=== PATIENT | male | born 1990 | race Two or more races ===

== ENCOUNTER 2018-11-19 20:39 | Emergency (ER) | payer OTHER ==
[~2018-11-19] VITALS: Ht 149.9 cm; Wt 75.3 kg
--- NOTE | 2018-11-19 21:15 | NUR ---
Dr. Cook at bedside for MSE.
[2018-11-19] MEDS ORDERED: IV NORMAL SALINE 1000 ML BAG IV ONE (21:30)
[2018-11-19] MEDS ORDERED: KETOROLAC TROMETHAMINE 15 MG INJ IV ONE (21:30)
[2018-11-19] MEDS ORDERED: NORMAL SALINE FLUSH 10 ML DISP.SYRIN ONE (21:36)
[2018-11-19] MEDS ORDERED: IOHEXOL 300MG/ML 100 ML INFUS..BTL ONE (21:36)
[2018-11-19] MEDS ORDERED: IV NORMAL SALINE 250 ML IV ONE (21:36)
[2018-11-19] MEDS ORDERED: SWABABLE VALVE TRANSFER SET EA MC ONE (21:36)
[2018-11-19 21:54] LABS: BASOPHILS # (AUTO) 0.1 K/uL (0.0-8.0); BASOPHILS % (AUTO) 0.5 % (0.0-2.0); EOSINOPHILS # (AUTO) 0.5 K/uL (0.0-0.7); EOSINOPHILS % (AUTO) 4.7 % (0.0-7.0); HEMATOCRIT 41.9 % (36.7-47.1); HEMOGLOBIN 14.2 g/dL (12.5-16.3); LYMPHOCYTES # (AUTO) 3.7 K/uL (20.0-40.0); LYMPHOCYTES % (AUTO) 34.2 % (20.5-51.5); MEAN CORPUSCULAR HEMOGLOBIN 28.3 uug (23.8-33.4); MEAN CORPUSCULAR HGB CONC 34 g/dL (32.5-36.3); MEAN CORPUSCULAR VOLUME 83.2 fL (73.0-96.2); MONOCYTES % (AUTO) 9.6 % (0.0-11.0); NEUTROPHILS # (AUTO) 5.6 K/uL (1.8-8.9); PLATELET COUNT (AUTO) 222 K/uL (152-348); RED BLOOD CELL COUNT(AUTO) 5.03 MIL/uL (4.06-5.63); WHITE BLOOD COUNT (AUTO) 10.9 K/uL (3.6-10.2)
[2018-11-19] MEDS ORDERED: KETOROLAC TROMETHAMINE 15 MG INJ ONE (21:55)
[2018-11-19 21:56] LABS: CARBON DIOXIDE 26 mmol/L (21-32); CHLORIDE 101 mmol/L (98-107); CREATININE 0.7 mg/dL (0.6-1.3); GLUCOSE 101 mg/dL (74-106); POTASSIUM 3.9 mmol/L (3.5-5.1); UREA NITROGEN, BLOOD 13 mg/dL (7-18)
[2018-11-19 22:02] LABS: ALANINE AMINOTRANSFERASE 68 U/L (16-63); ALKALINE PHOSPHATASE 106 U/L (50-136); ASPARTATE AMINOTRANSFERASE 30 U/L (15-37); BILIRUBIN,DIRECT 0.1 mg/dL (0.0-0.2); BILIRUBIN,TOTAL 0.4 mg/dL (0.2-1.0); LIPASE 143 U/L (73-393); TOTAL PROTEIN, SERUM 7.7 g/dL (6.4-8.2)
--- NOTE | 2018-11-19 22:10 | NUR ---
Pt out of ER for CT.
--- NOTE | 2018-11-19 22:24 | NUR ---
Pt back to ER from CT.
--- NOTE | 2018-11-19 22:35 | NUR ---
Pt provided urine sample, sent to lab.
[2018-11-19 22:42] LABS: *BILIRUBIN,URIN NEGATIVE (NEGATIVE); *BLOOD, URINE NEGATIVE (NEGATIVE); *CLARITY,URINE CLEAR (CLEAR); *COLOR,URINE LIGHT YELLOW (YELLOW); *KETONES,URINE NEGATIVE (NEGATIVE); *UROBILINOGEN,URINE 0.2 E.U./dl (NORMAL); LEUKOCYTE ESTERASE ,URINE NEGATIVE (NEGATIVE); NITRITE, URINE NEGATIVE (NEGATIVE); PH,URINE 5.5 (5.0-8.0); UGLUCOSE NEGATIVE (NEGATIVE)
[2018-11-19 22:53] LABS: BACTERIA,URINE NONE SEEN /HPF (NONE SEEN); RBC,URINE NONE SEEN /HPF (0-3); SQUAMOUS EPITHELIAL CELL,UR FEW /HPF (NONE SEEN); WBC,URINE 0-3 /HPF (0-3)
--- NOTE | 2018-11-19 23:06 | NUR ---
Patient discharged to home in stable conditon. Written and verbal after care instructions given. Patient verbalizes understanding of instructions. Pt ambulated out of ER with steady gait, no acute signs of distress, VSS, all belongings taken, IV site discontinued.
[2018-11-19 23:07] VITALS: BP 115/74
== END 2018-11-19 23:08 | disposition home or self-care (01) ==
LOC: ER 20:41
DX: K55.069 Acute infarction of intestine, part and extent unspecified (principal)
CPT/HCPCS: 36415; 71045; 74177; 80048; 80076; 81001; 83690; 84484; 85025; 85730; 93005; 96374; 99284; J1885; Q9967; 70030-TC; A4663; J3490; J7030; J7050

== ENCOUNTER 2019-10-04 18:41 | Emergency (ER) | payer OTHER ==
[~2019-10-04] VITALS: Ht 165.1 cm; Wt 77.1 kg
[2019-10-04] MEDS ORDERED: OSELTAMIVIR PHOSPHATE 75 MG CAPSULE ONE (22:45)
[2019-10-04] MEDS ORDERED: OSELTAMIVIR PHOSPHATE 75 MG CAPSULE PO ONE (22:45)
--- NOTE | 2019-10-04 22:50 | NUR ---
PT ABLE TO TOLERATE PO MEDS ORDERED Patient discharged to home in stable conditon. Written and verbal after care instructions given. Patient verbalizes understanding of instructions. AMBULATORY W/ STABLE ALL BELONGINGS W/ PT
[2019-10-04 22:53] VITALS: BP 119/89
== END 2019-10-04 22:54 | disposition home or self-care (01) ==
LOC: ER 18:43
DX: J10.1 Influenza due to other identified influenza virus with other respiratory manifestations (principal)
CPT/HCPCS: 36415; 86403; 87070; 87400; A4663

== ENCOUNTER 2020-07-28 11:11 | Emergency (ER) | payer OTHER ==
[~2020-07-28] VITALS: Ht 165.1 cm; Wt 77.1 kg
[2020-07-28] MEDS ORDERED: KETOROLAC TROMETHAMINE 15 MG INJ IVP ONE (11:30)
[2020-07-28] MEDS ORDERED: KETOROLAC TROMETHAMINE 30 MG INJ ONE (11:34)
--- NOTE | 2020-07-28 11:50 | NUR ---
PT IS IN ROOM #1B. DR MARTIN EVALUATED THE PT.
[2020-07-28 12:01] LABS: BASOPHILS % (AUTO) 0.7 % (0.0-2.0); EOSINOPHILS # (AUTO) 0.2 K/uL (0.0-0.7); HEMOGLOBIN 15.5 g/dL (12.5-16.3); LYMPHOCYTES # (AUTO) 2.4 K/uL (20.0-40.0); LYMPHOCYTES % (AUTO) 37.5 % (20.5-51.5); MEAN CORPUSCULAR HEMOGLOBIN 28.5 uug (23.8-33.4); MEAN CORPUSCULAR HGB CONC 34 g/dL (32.5-36.3); MEAN CORPUSCULAR VOLUME 84.8 fL (73.0-96.2); MONOCYTES # (AUTO) 0.9 K/uL (2.0-10.0); MONOCYTES % (AUTO) 13.4 % (0.0-11.0); NEUTROPHILS # (AUTO) 2.9 K/uL (1.8-8.9); NEUTROPHILS % (AUTO) 45.4 % (38.5-71.5); PLATELET COUNT (AUTO) 177 K/uL (152-348); RED BLOOD CELL COUNT(AUTO) 5.43 MIL/uL (4.06-5.63); WHITE BLOOD COUNT (AUTO) 6.4 K/uL (3.6-10.2)
[2020-07-28 12:05] LABS: BILIRUBIN,DIRECT 0.1 mg/dL (0.0-0.2); BILIRUBIN,TOTAL 0.2 mg/dL (0.2-1.0); CREATININE 0.9 mg/dL (0.6-1.3); POTASSIUM 3.7 mmol/L (3.5-5.1); TOTAL PROTEIN, SERUM 8.7 g/dL (6.4-8.2)
[2020-07-28 12:07] LABS: *BILIRUBIN,URIN NEGATIVE (NEGATIVE); *BLOOD, URINE NEGATIVE (NEGATIVE); *CLARITY,URINE CLEAR (CLEAR); *COLOR,URINE YELLOW (YELLOW); *KETONES,URINE NEGATIVE (NEGATIVE); *UROBILINOGEN,URINE 0.2 E.U./dl (NORMAL); LEUKOCYTE ESTERASE ,URINE NEGATIVE (NEGATIVE); NITRITE, URINE NEGATIVE (NEGATIVE); PH,URINE 6.5 (5.0-8.0); UGLUCOSE NEGATIVE (NEGATIVE)
--- NOTE | 2020-07-28 12:48 | NUR ---
PT WAS D/C'd TO HOME. D/C INSTRUCTIONS GIVEN TO THE PT BY DR MARTIN.
[2020-07-28 12:49] VITALS: BP 129/81
[2020-07-28 17:22] LABS: BACTERIA,URINE FEW /HPF (NONE SEEN); RBC,URINE 0-3 /HPF (0-3); SQUAMOUS EPITHELIAL CELL,UR FEW /HPF (NONE SEEN); WBC,URINE 0-3 /HPF (0-3)
== END 2020-07-28 12:50 | disposition home or self-care (01) ==
LOC: ER 11:11
DX: R10.11 Right upper quadrant pain (principal); K76.0 Fatty (change of) liver, not elsewhere classified
CPT/HCPCS: 36415; 74176; 80048; 80076; 81001; 83690; 85025; 96374; 99284; J1885; A4663

== ENCOUNTER 2022-09-24 20:37 | Emergency (ER) | payer OTHER ==
[~2022-09-24] VITALS: Ht 157.5 cm; Wt 68.0 kg
--- NOTE | 2022-09-24 22:00 | NUR ---
Patient was just called to be triaged at this time due to multiple rescue arriving but patient was not present in the wiating room or outside of ER.
[2022-09-24 23:41] LABS: HEMATOCRIT 39.8 % (36.7-47.1); MEAN CORPUSCULAR HEMOGLOBIN 28.4 uug (23.8-33.4); PLATELET COUNT (AUTO) 231 K/uL (152-348)
[2022-09-25 00:05] LABS: BILIRUBIN,DIRECT 0.1 mg/dL (0.0-0.2); BILIRUBIN,TOTAL 0.2 mg/dL (0.2-1.0); CREATININE 0.8 mg/dL (0.6-1.3); POTASSIUM 3.9 mmol/L (3.5-5.1); TOTAL PROTEIN, SERUM 7.5 g/dL (6.4-8.2)
[2022-09-25] MEDS ORDERED: ONDANSETRON 4 MG/2 ML VIAL IV ONE (00:30)
[2022-09-25] MEDS ORDERED: HYDROMORPHONE 1 MG/1 ML DISP.SYRIN IV ONE (00:30)
[2022-09-25] MEDS ORDERED: ONDANSETRON 4 MG/2 ML VIAL ONE (00:34)
[2022-09-25] MEDS ORDERED: HYDROMORPHONE 1 MG/1 ML DISP.SYRIN ONE (00:34)
[2022-09-25] MEDS ORDERED: IOHEXOL 300MG/ML 100 ML INFUS..BTL ONE (01:49)
[2022-09-25] MEDS ORDERED: SWABABLE VALVE TRANSFER SET EA MC ONE ×2 (01:49→01:51)
[2022-09-25] MEDS ORDERED: IV NORMAL SALINE 250 ML IV ONE (01:51)
[2022-09-25] MEDS ORDERED: HYDR-3980 PO (03:28)
--- NOTE | 2022-09-25 03:45 | NUR ---
Patient discharged to home in stable condition. Written and verbal after care instructions given. Patient verbalizes understanding of instructions. Stressed follow up or return to ER for worsening s/s. Patient walked out with steady gait.
[2022-09-25 05:23] VITALS: BP 122/71
== END 2022-09-25 03:48 | disposition home or self-care (01) ==
LOC: ER 20:42
DX: R10.31 Right lower quadrant pain (principal)
CPT/HCPCS: Q9967 ×12; 36415; 83690; 85025; A4663; J1170; J2405